=== PATIENT | female | born 1955 | race Caucasian/White ===

== ENCOUNTER → 2017-06-11 15:23 | Outpatient (CLI) | payer BC, SELFPAY ==
--- NOTE | 2017-06-11 15:41 | US_ITS ---
STUDY: ULTRASOUND TRANSVAGINAL CLINICAL: Female, 61 years old. Left lower quadrant pain TECHNIQUE: Transabdominal and Transvaginal COMPARISON: None. FINDINGS: Normal uterine size measuring 6.6 x 4.9 x 3.5 cm in maximal craniocaudal dimension. Multiple uterine fibroids are noted. Largest measuring 1.3 x 1.6 x 1 cm in the mid body. Lower right uterine fibroid measuring 1.5 x 1.7 x 1.1 cm Normal endometrial thickness measuring 3 mm. There are no endometrial masses, and there is no fluid in the endometrial cavity. Normal uterine cervix. Normal right ovary, measuring 2.2 x 1.9 x 1.3 cm. There are multiple follicles without a dominant cyst. Nonvisualized left ovary There is no free fluid in the pelvis. US/Pelvic (Non ) IMPRESSION: Uterine fibroids. Normal right ovary. Status post left oophorectomy. Electronically Signed: Abelardo Marrero DO at 17:30 EST Tel , Service support ,
--- NOTE | 2017-06-11 16:00 | US_ITS ---
STUDY: ULTRASOUND TRANSVAGINAL CLINICAL: Female, 61 years old. Left lower quadrant pain TECHNIQUE: Transabdominal and Transvaginal COMPARISON: None. FINDINGS: Normal uterine size measuring 6.6 x 4.9 x 3.5 cm in maximal craniocaudal dimension. Multiple uterine fibroids are noted. Largest measuring 1.3 x 1.6 x 1 cm in the mid body. Lower right uterine fibroid measuring 1.5 x 1.7 x 1.1 cm Normal endometrial thickness measuring 3 mm. There are no endometrial masses, and there is no fluid in the endometrial cavity. Normal uterine cervix. Normal right ovary, measuring 2.2 x 1.9 x 1.3 cm. There are multiple follicles without a dominant cyst. Nonvisualized left ovary There is no free fluid in the pelvis. US/Transvaginal Non- IMPRESSION: Uterine fibroids. Normal right ovary. Status post left oophorectomy. Electronically Signed: Abelardo Marrero DO at 17:30 EST Tel , Service support ,
== END ==
PROVIDERS: Visit Provider Obstetrics & Gynecology
DX: R10.32 Left lower quadrant pain (principal)
CPT/HCPCS: 76830; 76856; 93976

== ENCOUNTER → 2018-01-02 16:38 | Outpatient (CLI) | payer BC, SELFPAY ==
[2018-01-09 08:34] LABS: HPV Reflexed? NOT INDICATED
== END ==
PROVIDERS: Visit Provider Obstetrics & Gynecology
DX: Z12.4 Encounter for screening for malignant neoplasm of cervix (principal)
CPT/HCPCS: 88175; G0145

== ENCOUNTER → 2018-01-22 08:29 | Outpatient (CLI) | payer BC, SELFPAY ==
--- NOTE | 2018-01-22 08:31 | BI_ITS ---
MAMMOGRAPHY - BILATERAL SCREENING REASON FOR EXAM: Female, 62 years old. Routine annual screening examination. PERTINENT HISTORY: Non-contributory. TECHNIQUE: Digital bilateral breast kaveh (3D mammographic acquisition) in the CC and MLO projections. 2-D mediolateral oblique (MLO) and craniocaudad (CC) views of both breasts were obtained. CAD: Full Field Digital Mammography with Computer Added Detection was performed. COMPARISON: Comparison is made with prior abdomen examination dated December 01, 2015. FINDINGS: Breast Composition: The breasts are extremely dense, which lowers the sensitivity of mammography. There are no dominant masses or suspicious calcifications. No other significant abnormalities are identified. There has been no significant change since the prior study. BI/SCREENING MAMM (CAD), BILAT IMPRESSION: Stable bilateral screening mammogram. Yearly follow-up mammogram recommended. (A) ASSESSMENT CATEGORY: BIRADS Category 1: Negative. A letter regarding these results will be sent to the patient by the facility within 30 days. Approximately 10% of breast cancers are not detected by mammography. A normal mammogram should not delay biopsy of a clinically suspicious abnormality. [id number] Electronically Signed: Roque Bone MD at 14:15 EDT Tel [phone], Service support ,
== END ==
PROVIDERS: Visit Provider Obstetrics & Gynecology
DX: Z12.31 Encounter for screening mammogram for malignant neoplasm of breast (principal)
CPT/HCPCS: 77062; 77063; 77067; G0279

== ENCOUNTER → 2019-02-05 08:19 | Outpatient (CLI) | payer BC, SELFPAY ==
--- NOTE | 2019-02-05 08:21 | BI_ITS ---
MAMMOGRAPHY - BILATERAL SCREENING REASON FOR EXAM: Female, 63 years old. Routine annual screening examination. PERTINENT HISTORY: Non-contributory. TECHNIQUE: Digital bilateral breast tammi (3D mammographic acquisition) in the CC and MLO projections. 2-D mediolateral oblique (MLO) and craniocaudad (CC) views of both breasts were obtained. CAD: Full Field Digital Mammography with Computer Added Detection was performed. COMPARISON: Comparison is made with prior examination dated January 22, 2018. FINDINGS: Breast Composition: The breasts are extremely dense, which lowers the sensitivity of mammography. There are no dominant masses or suspicious calcifications. No other significant abnormalities are identified. There has been no significant change since the prior study. BI/SCREEN MAMM (CAD) W/TAMMI BILAT IMPRESSION: Stable bilateral screening mammogram. Yearly follow-up mammogram recommended. (A) ASSESSMENT CATEGORY: BIRADS Category 1: Negative. A letter regarding these results will be sent to the patient by the facility within 30 days. Approximately 10% of breast cancers are not detected by mammography. A normal mammogram should not delay biopsy of a clinically suspicious abnormality. [id number] Electronically Signed: Roque Bone, at 10:11 EDT , Service support ,
== END ==
PROVIDERS: Referring Provider Obstetrics & Gynecology; Visit Provider Obstetrics & Gynecology
DX: Z12.31 Encounter for screening mammogram for malignant neoplasm of breast (principal)
CPT/HCPCS: 77063; 77067

== ENCOUNTER → 2020-12-17 09:58 | Outpatient (CLI) | payer BC, SELFPAY ==
--- NOTE | 2020-12-17 10:01 | BI_ITS ---
MAMMOGRAPHY - BILATERAL SCREENING REASON FOR EXAM: Female, 65 years old. Routine annual screening examination. PERTINENT HISTORY: Non-contributory. TECHNIQUE: Digital bilateral breast tammi (3D mammographic acquisition) in the CC and MLO projections. 2-D mediolateral oblique (MLO) and craniocaudad (CC) views of both breasts were obtained. CAD: Full Field Digital Mammography with Computer Added Detection was performed. COMPARISON: Comparison is made with prior examination dated 02/05/2019 and 01/22/2018. FINDINGS: Breast Composition: The breasts are extremely dense, which lowers the sensitivity of mammography. There are no dominant masses or suspicious calcifications. No other significant abnormalities are identified. There has been no significant change since the prior study. BI/SCRN MAMM (CAD)W/TAMMI BILAT IMPRESSION: Stable bilateral screening mammogram. Yearly follow-up mammogram recommended. (A) ASSESSMENT CATEGORY: BIRADS Category 1: Negative. A letter regarding these results will be sent to the patient by the facility within 30 days. Approximately 10% of breast cancers are not detected by mammography. A normal mammogram should not delay biopsy of a clinically suspicious abnormality. [id number] Electronically Signed: Roque Bone MD at 8:49 EDT , Service support ,
== END ==
PROVIDERS: Referring Provider Student in an Organized Health Care Education/Training Program; Visit Provider Student in an Organized Health Care Education/Training Program
DX: Z12.31 Encounter for screening mammogram for malignant neoplasm of breast (principal)
CPT/HCPCS: 77063; 77067

== ENCOUNTER → 2021-04-12 11:35 | Outpatient (CLI) | payer BC, SELFPAY ==
[2021-04-14 12:47] LABS: HPV APTIMA, High Risk Negative (Negative)
== END ==
PROVIDERS: Visit Provider Student in an Organized Health Care Education/Training Program
DX: Z12.4 Encounter for screening for malignant neoplasm of cervix (principal)
CPT/HCPCS: 87624; 88175; G0145

== ENCOUNTER → 2022-07-17 | Outpatient (CLI) | payer BC, SELFPAY ==
--- NOTE | 2022-07-17 10:15 | EMB_PTH ---
PATIENT: DEBI ALMAZAN LOC: [facility] U#:[id number] AGE/SX: 66/F ROOM: RE07/17/[address]: Dr. Amy Pinto DO : 1955 BED: DIS: 07/17/2022 SPEC #: [id number] RECD: 07/17/22 11:39 STATUS: ANGELES REQ #: [id number] JADE: 07/17/22 10:[address]: Amy Pinto DEPT: SURGICAL PATHOLOGY RECD BY: Radha Denton ENTERED: 07/17/22 12:39 SP TYPE: ENDOM BX/C JOHANA DR: Soraida Primary Care Phys Tissues: Endometrium, NOS Procedures: Surgery Specimen Level IV HEADER OPERATION: Endometrial biopsy PRE-OP DIAGNOSIS: Postmenopausal bleeding TISSUE SUBMITTED: Endometrial biopsy MICROSCOPIC DIAGNOSIS Endometrium, biopsy: Scant strips of benign glandular mucosa. SJ:machelle 07/18/2022 MICROSCOPIC DESCRIPTION Slides are reviewed. GROSS DESCRIPTION Received in fixative is one container labeled with the patient's name and designated endometrial biopsy. The specimen consists of multiple fragments of hemorrhagic soft tissue that in aggregate measure 2.5 x 1.0 x 0.1 cm. The specimen is totally submitted in one cassette. / SJ:machelle 07/17/2022 TC:5 CPT: 78017
== END | disposition home or self-care (01) ==
PROVIDERS: Visit Provider Student in an Organized Health Care Education/Training Program
DX: N95.0 Postmenopausal bleeding (principal)
CPT/HCPCS: 88305